=== PATIENT | female | born 1935 | race Caucasian/White ===

== ENCOUNTER 2021-02-24 12:22 | Inpatient (IN) | payer MEDICARE, OTHER ==
[2021-02-24] VITALS (9 sets, daily range): BP systolic 76–99; BP diastolic 40–54; PULSE 99–108; TEMP 97.8–100
[~2021-02-24] VITALS: Wt 81.1 kg
[~2021-02-24 12:22] MED LIST: ALA 100MG PO; AMBIEN 10MG10 MG PO; ASPIRIN E.C. 8181 MG PO; CALCIUM CARBON650 M2 PO; IBU800 M1 PO; MAGNESIUM500 MG PO; MULTIVITAMIN FO1 CAP PO; NORCO 325 MG-51 TAB PO; NORCO 325 MG-7.1 TAB PO; PROBIOTIC ACID1 EAC3 PO; TOPROL XL 25MG25 MG PO; VITAMIND3 5000
[2021-02-24] MEDS ORDERED: SYNTHROID0.088 MG/T PO (14:41)
--- NOTE | 2021-02-24 23:38 | NUR ---
Pt.'s BP at 76/40 manually. INESSA Cruz notified. New orders received. Will monitor.
[2021-02-25] VITALS (16 sets, daily range): BP systolic 85–129; BP diastolic 43–64; PULSE 82–144; TEMP 98–101
[2021-02-25 06:34] LABS: CALCIUM 7.6 mg/dL (8.4-10.2); CREATININE, serum 0.76 mg/dL (0.57-1.11)
[2021-02-25 06:51] LABS: HEMOGLOBIN 12.4 g/dl (12.5-16.0); MEAN CELL VOLUME 96 fl (80.0-100.0); MEAN CORPUSCULAR HEMOGLOBIN 31 pg (27-31); MEAN CORPUSCULAR HGB CONC 32 g/dl (33.0-37.0); MEAN PLATELET VOLUME 10.1 fl (7.4-10.4); PLATELET COUNT 130 K/mm3 (130-400); RED BLOOD COUNT 4.07 M/mm3 (4.10-5.30); REDCELL DISTRIBUTION WIDTH-CV 13.3 % (11.5-14.5)
--- NOTE | 2021-02-25 06:54 | NUR ---
Critical lab value called to Dr. Nicole.
[2021-02-25 07:50] LABS: BAND 23 % (0-10); LYMPHOCYTE 7 % (20.0-51.0); NEUTROPHILS 64 % (42.0-75.2)
[2021-02-25 07:51] LABS: HYPOCHROMIA 2+; PLATELET ESTIMATE NORMAL (NORMAL)
--- NOTE | 2021-02-25 09:25 | NUR ---
BRADEN met with the patient to discuss discharge plan. The patient lives alone in an apartment in [place]. She states that her daughter, Maria Guadalupe, lives next door to her. She reports independence with ADLs and has a cane. The patient's primary care provider is Yissel Ortez APRN and she receives her medications from [facility]. The patient does not have a DPOA-HC, but she states that she does have one completed and that she designated her daughter, Ashleigh Gamez ([place], ph#[phone]). The patient states that Ashleigh should have a copy of the document. She states that she is and has three children: Ashleigh, Maria Guadalupe, and Eloise ([place]). The patient would like to return home upon discharge. PT/OT have been ordered. Awaiting recs. BRADEN contacted and reviewed the above with the patient's daughter, Ashleigh. Ashleigh reports that she is looking for the DPOA-HC and will try and email or get a copy of the DPOA-HC to BRADEN. Ashleigh reports that she is supportive of the patient returning home, as long as she is able to get up and get around. Ashleigh reports that her sister that lives next door to the patient is disabled and would not be able to physically assist the patient much. She is open to whatever therapy would recommend. She reports that between her and the family, they are able to assist the patient. *Discharge plan: Tentatively home. Will await therapy's recs*
--- NOTE | 2021-02-25 15:11 | NUR ---
The patient is walking 300 ft with PT. PT and OT are recommending home.
--- NOTE | 2021-02-25 21:13 | NUR ---
CARDIZEM BOLUS 10MG IV GIVEN.
--- NOTE | 2021-02-26 02:40 | NUR ---
CALL RECIEVED FROM TELE PATIENT WAS AFIB W RVR. NOTIFIED LILIANA, STAT EKG ORDERED. CONFIRMED AFIB W RVR/AFLUTTER. CARDIAZEM BOLUS ORDERED AND GIVEN BY ROSIBEL BEDOLLA. NO SIGNIFICANT CHANGE. CARDIAZEM DRIP ORDERED AND STARTED BY ROSIBEL BEDOLLA. PATIENT QUICKLY RETURNED TO SINUS TACH. LILIANA NOTIFIED. CARDIAZEM DRIP HELD, NEW EKG SHOWED SINUS TACH. CARDIAZEM DRIP DC'D PER ORDERS AND PO METOPROLOL GIVEN.
[2021-02-26 04:41] VITALS: BP 126/57; PULSE 88; TEMP 97.9
[2021-02-26 07:38] LABS: HEMOGLOBIN 10.8 g/dl (12.5-16.0); MEAN CELL VOLUME 92 fl (80.0-100.0); MEAN CORPUSCULAR HEMOGLOBIN 30 pg (27-31); MEAN CORPUSCULAR HGB CONC 33 g/dl (33.0-37.0); MEAN PLATELET VOLUME 9.9 fl (7.4-10.4); PLATELET COUNT 127 K/mm3 (130-400); RED BLOOD COUNT 3.55 M/mm3 (4.10-5.30); REDCELL DISTRIBUTION WIDTH-CV 13.2 % (11.5-14.5)
[2021-02-26 07:44] LABS: HEMATOCRIT 32.8 % (37.0-47.0)
[2021-02-26 07:49] LABS: CALCIUM 7.8 mg/dL (8.4-10.2); CREATININE, serum 0.55 mg/dL (0.57-1.11); POTASSIUM 3.4 mmol/L (3.5-4.5)
[2021-02-26 08:10] VITALS: BP 134/66; PULSE 84; TEMP 97.9
[2021-02-26 09:00] LABS: BAND 22 % (0-10); EOSINOPHIL 1 % (0-4); HYPOCHROMIA 1+; LYMPHOCYTE 4 % (20.0-51.0); NEUTROPHILS 71 % (42.0-75.2); PLATELET ESTIMATE DECREASED (NORMAL)
[2021-02-26 12:53] VITALS: BP 122/67; PULSE 87; TEMP 98
[2021-02-26 16:36] VITALS: BP 130/57; PULSE 85; TEMP 98.2; TEMP 982
--- NOTE | 2021-02-26 16:54 | NUR ---
Pt doing well. She has responded nicely to the lasix. Called Sims regarding UA that was sent off for culture. Results are still pending. Pt has had no episodes of diarrhea today. No needs verbalized, call light within reach
[2021-02-26 19:47] VITALS: BP 128/61; PULSE 79; TEMP 97.8
--- NOTE | 2021-02-26 21:00 | NUR ---
Pt. sitting up in bed at this time. Pt. is A&OX3, assessment complete. INT to lt. wrist patent. Pt. denies pain or other needs, call light within reach.
[2021-02-26 22:51] VITALS: BP 117/62; PULSE 61; TEMP 98.3
[2021-02-27 03:25] VITALS: BP 120/64; PULSE 74; TEMP 98
[2021-02-27 07:00] LABS: HEMOGLOBIN 11.6 g/dl (12.5-16.0); MEAN CELL VOLUME 89 fl (80.0-100.0); MEAN CORPUSCULAR HEMOGLOBIN 30 pg (27-31); MEAN CORPUSCULAR HGB CONC 34 g/dl (33.0-37.0); MEAN PLATELET VOLUME 10.3 fl (7.4-10.4); PLATELET COUNT 160 K/mm3 (130-400); RED BLOOD COUNT 3.88 M/mm3 (4.10-5.30); REDCELL DISTRIBUTION WIDTH-CV 12.9 % (11.5-14.5)
[2021-02-27 07:24] LABS: HEMATOCRIT 34.5 % (37.0-47.0)
[2021-02-27 07:27] LABS: CALCIUM 8.2 mg/dL (8.4-10.2); CREATININE, serum 0.59 mg/dL (0.57-1.11); POTASSIUM 3.4 mmol/L (3.5-4.5)
[2021-02-27 08:26] VITALS: BP 106/50; PULSE 78; TEMP 98.4
[2021-02-27 09:13] LABS: BAND 7 % (0-10); LYMPHOCYTE 11 % (20.0-51.0); NEUTROPHILS 75 % (42.0-75.2); PLATELET ESTIMATE NORMAL (NORMAL)
--- NOTE | 2021-02-27 10:10 | NUR ---
Patient is A&Ox4 and doing well. Patient did have an episode of incontinent diarrhea and a shower was given given by the PCT.
--- NOTE | 2021-02-27 11:13 | NUR ---
Discussed pt care with Dr Disla. She is ok with pt discharging. She stated that she did talk to Dr Nicole about this. Pt is have diarrhea, will discuss with Dr Nicole about getting some imodium if not already ordered. Pt has no pain complaints. Heart rate regular sinus rhythm, bowel sounds active and lung sounds clear. Pt is having great output from the lasix. Still has some edema to lower extremities, but not as bad as yesterday.
[2021-02-27 12:11] VITALS: BP 107/57; PULSE 78; TEMP 98.4
[2021-02-27 16:54] VITALS: BP 120/59; PULSE 80; TEMP 98.5
--- NOTE | 2021-02-27 17:00 | NUR ---
Pt has overall done well this afternoon. She has had no more episodes of diarrhea. She is having no pain complaints. Discussed pt care with Dr Disla earlier this afternoon. pt denies any needs, call light within reach
[2021-02-27 18:55] VITALS: BP 114/45; PULSE 80; TEMP 97.9
--- NOTE | 2021-02-27 22:00 | NUR ---
Pt. sitting up in bed. Pt. is A&OX3, assessment complete. INT to lt. wrist patent. Pt. denies pain or other needs, call light within reach.
[2021-02-27] MEDS ORDERED: ELIQUIS 5MG PO (23:01)
[2021-02-27] MEDS ORDERED: CORDARONE200 MG/TAB PO ×3 (23:09→23:12)
[2021-02-27] MEDS ORDERED: BACTRIM DS 8001 TAB PO (23:13)
[2021-02-27] MEDS ORDERED: LASIX 40MG TABL40 MG PO (23:17)
[2021-02-28 02:52] VITALS: BP 118/60; PULSE 69; TEMP 97.8
[2021-02-28 07:58] VITALS: BP 122/55; PULSE 74; TEMP 98
--- NOTE | 2021-02-28 08:53 | NUR ---
Patient up to the bathroom, loose BM. pericares provided. Patient up tp chair for breakfast. denies nausea. denies pain. Int. Very plesant. Will monitor.
[2021-02-28 10:24] LABS: CLOSTRIDIUM DIFF A/B NEG; CLOSTRIDIUM DIFF A/B INTERP No C.diff present
--- NOTE | 2021-02-28 10:35 | NUR ---
Patient up to the bathroom, small loose stool. Incontinent cares provided. Patient up sink and brushed her teeth. Will monitor.
[2021-02-28 12:13] VITALS: BP 115/54; PULSE 73; TEMP 98.6
--- NOTE | 2021-02-28 12:36 | NUR ---
Patient resting in bed. Lunch ordered. Cardiology rounded. K+ replacment per orders. Patient took medication with crakers. She denies pain, just reports her stomach is going "crazy". Denies needs. Will monitor
--- NOTE | 2021-02-28 15:09 | NUR ---
Patient tolerated lunch. She is in good spirits.
[2021-02-28 15:37] VITALS: BP 97/43; PULSE 88; TEMP 98.4
--- NOTE | 2021-02-28 15:51 | NUR ---
Patient was up and ambulated the halls with therapy. Sitting up in chair watching [employer] game now.
--- NOTE | 2021-02-28 17:08 | NUR ---
Patient resting in bed. no interest in dinner. No other needs at this time
[2021-02-28 19:12] VITALS: BP 106/52; PULSE 72; TEMP 98
--- NOTE | 2021-02-28 19:18 | NUR ---
Bedside report to Senthil Castellanos
--- NOTE | 2021-02-28 20:40 | NUR ---
Pt. sitting up in bed. Pt. is A&OX3, assessment complete. INT to lt. wrist patent. Pt. denies pain or other needs, call light within reach.
[2021-03-01 03:32] VITALS: BP 120/53; PULSE 79; TEMP 98
[2021-03-01 08:00] VITALS: BP 102/62; PULSE 81; TEMP 98.1
[2021-03-01 08:27] LABS: HEMOGLOBIN 12.3 g/dl (12.5-16.0); MEAN CELL VOLUME 87 fl (80.0-100.0); MEAN CORPUSCULAR HEMOGLOBIN 30 pg (27-31); MEAN CORPUSCULAR HGB CONC 34 g/dl (33.0-37.0); MEAN PLATELET VOLUME 9.6 fl (7.4-10.4); PLATELET COUNT 204 K/mm3 (130-400); REDCELL DISTRIBUTION WIDTH-CV 12.8 % (11.5-14.5)
[2021-03-01 08:34] LABS: HEMATOCRIT 35.8 % (37.0-47.0)
[2021-03-01 08:43] LABS: CALCIUM 8.5 mg/dL (8.4-10.2); CREATININE, serum 0.6 mg/dL (0.57-1.11); POTASSIUM 3.8 mmol/L (3.5-4.5)
[2021-03-01 08:59] LABS: BAND 2 % (0-10); BASOPHIL 1 % (0-2); EOSINOPHIL 3 % (0-4); LYMPHOCYTE 22 % (20.0-51.0); NEUTROPHILS 61 % (42.0-75.2); PLATELET ESTIMATE NORMAL (NORMAL)
--- NOTE | 2021-03-01 10:57 | NUR ---
Patient is alert, oriented x4. Makes needs known. Ramirez catheter removed for anticiapted discharge. Discharge orders noted for after patient is able to void. Medications held for SBP this am, see MAR. Eats breakfast meal. Catheter care/pericare given this am prior to ramirez removal. INT to Left wrist flushes, no s/s of redness, swelling, or warmth. Pt anxious to discharge later today. Denies pain or nausea. Call light within reach.
[2021-03-01 11:35] VITALS: BP 117/63; PULSE 80; TEMP 97.8
--- NOTE | 2021-03-01 11:49 | NUR ---
Patient denies complaints. Aware that once she has a urine void, she may discharge. Drinking water and reading book. Call light within reach.
--- NOTE | 2021-03-01 13:41 | NUR ---
Patient had large urine void. Daughter and granddaughter here, discharge instructions given to all three. Questions answered. Patient reports feeling fine at time of discharge, denied pain or nausea. Discharge paperwork given, INT removed. Pt discharges via wc and SUEDING MACHINE OPERATOR at 1339.
== END 2021-03-01 13:39 | disposition home or self-care (01) | DRG 854 ==
LOC: SURG 12:22 → EDSTATUS 13:06 → SURG 13:19
PROVIDERS: Physician Assistant; Urology; ADMIT Internal Medicine
PROC: 0T778DZ Dilation of Left Ureter with Intraluminal Device, Via Natural or Artificial Opening Endoscopic (ICD-10-PCS; principal; 2021-02-24 18:10)
PROC: BT1B1ZZ Fluoroscopy of Bladder and Urethra using Low Osmolar Contrast (ICD-10-PCS; 2021-02-24 18:10)
DX: A41.9 Sepsis, unspecified organism (principal); N13.6 Pyonephrosis; I10 Essential (primary) hypertension; E03.9 Hypothyroidism, unspecified; G47.00 Insomnia, unspecified; K52.9 Noninfective gastroenteritis and colitis, unspecified; K44.9 Diaphragmatic hernia without obstruction or gangrene; N83.202 Unspecified ovarian cyst, left side; N83.201 Unspecified ovarian cyst, right side; K57.90 Diverticulosis of intestine, part unspecified, without perforation or abscess without bleeding; I48.91 Unspecified atrial fibrillation; B96.1 Klebsiella pneumoniae [K. pneumoniae] as the cause of diseases classified elsewhere; Z79.82 Long term (current) use of aspirin
CPT/HCPCS: OP; 99223-AI; 99232-AI; 99233-AI; 99239; C1769; C2617; J0690; J1650; J1940; J2185; J2270; J2405; J2704; J3010; J7030; Q9967

== ENCOUNTER 2021-05-07 10:58 | Day surgery (SDC) | payer MEDICARE, OTHER ==
[~2021-05-07] VITALS: Ht 170.2 cm; Wt 80.2 kg
[2021-05-07] VITALS (10 sets, daily range): BP systolic 106–1106; BP diastolic 44–82; PULSE 77–102; TEMP 97.6–98.4
[~2021-05-07 10:58] MED LIST changes: +BACTRIM DS 8001 TAB PO; -CALCIUM CARBON650 M2 PO; +CORDARONE200 MG/TAB PO; +ELIQUIS 5MG PO; +LASIX 40MG TABL40 MG PO; +OSCAL 500 TAB500 MG PO; +SYNTHROID0.088 MG/T PO
[2021-05-07] MEDS ORDERED: NAC600 MG PO (12:29)
[2021-05-07] MEDS ORDERED: CVS SPECTRAVIT1 EA15 PO (12:30)
[2021-05-07] MEDS ORDERED: ASPIRIN E.C. 8181 MG PO (12:31)
--- NOTE | 2021-05-07 15:59 | NUR ---
Patient admitted to surgical floor room 326 from PACU via hospital bed at 14:35 pm. Patient A/Ox4. Patient denies any pain or discomfort. Denies SOB or N/V. VS stable. Called patient's daughter Ashleigh and updated on patient condition. Oriented patient to the room. Patient using a walker in the room. Assisted patient to the bathroom with standby assist. Patient denies headache or dizziness upon get up. Fall preacaution maintained. Offered warm water per patient request. Call light in reach. Will continue to monitor.
--- NOTE | 2021-05-07 16:45 | NUR ---
Patient doing well. Patient sitting up in bed and eating dinner. Patient tolerating PO intake. Patient denies pain, or N/V. Ambulating to the bathroom with a walker. Stand by assist provided. Patient's daughter in the room. Call light in reach. Will continue to monitor.
--- NOTE | 2021-05-07 22:00 | NUR ---
Pt. is sitting up in bed. Pt. is A&OX3, assessment complete. INT to rt. forearm patent. Pt. denies pain or other needs. Call light within reach.
[2021-05-08 04:01] VITALS: BP 97/42; PULSE 86; TEMP 98.1
[2021-05-08 08:00] VITALS: BP 102/56; PULSE 77; TEMP 97.4
--- NOTE | 2021-05-08 11:17 | NUR ---
Initial visit; Patient and family thanked Me[employer] Whe[employer] Driver for looking in on patient and offering encouragement and prayer.
[2021-05-08] MEDS ORDERED: DIFLUCAN50 MG PO (11:22)
--- NOTE | 2021-05-08 12:40 | NUR ---
PATIENT'S IV WAS REMOVED, CATHETER INTACT, PRIOR TO DISCHARGE. PATIENT'S DISCHARGE PACKET WAS REVIEWED WITH PATIENT AND PATIENT VERBALIZED UNDERSTANDING OF DISCHARGE INSTRUCTIONS. NURSE REVIEWED DISCHARGE INFORMATION ABOUT POST PROCEDURE FOLLOW UP AND PATIENT DID NOT HAVE ANY QUESTIONS OR CONCERNS AT THIS TIME.
== END 2021-05-08 12:45 | disposition home or self-care (01) ==
LOC: SDCO 10:58 → SURG 15:51 → SDCO 05-08 12:45
DX: N20.1 Calculus of ureter (principal); N30.20 Other chronic cystitis without hematuria; R82.81 Pyuria; Z87.891 Personal history of nicotine dependence
CPT/HCPCS: OP; C1769; J2704; Q9967

== ENCOUNTER 2023-12-28 00:17 | Inpatient (IN) | payer MEDICARE ==
[~2023-12-28] VITALS: Ht 172.7 cm; Wt 89.9 kg
[2023-12-28] VITALS (18 sets, daily range): BP systolic 93–169; BP diastolic 54–84; PULSE 77–101; TEMP 97.3–102.6
[~2023-12-28 00:17] MED LIST changes: +CRANBERRY 4001 EACH PO; +CVS SPECTRAVIT1 EA15 PO; +DIFLUCAN50 MG PO; +DULCOLAX S10 MG/SUPP RC; +DULCOLAX STOOL100 MG PO; +LASIX 20MG TABL20 MG PO; +LOPRESSOR 225 MG/TAB PO; +MILK OF MA400 MG/52 PO; +MYLANTA 150 ML150 M1 PO; +NAC600 MG PO; +NATURAL MAGNES200 MG PO; +TYLENOL 8 HR PO; +VITAMINC1000TA; +VITAMINC1000TA PO; -VITAMIND3 5000; +VITAMIND3 5000 PO; +ZOFRAN INJ4 MG/2 ML IV; +[UNRECOGNIZED DRUG - OTHER] PO
[2023-12-28] MEDS ORDERED: CORDARONE200 MG/TAB PO (01:43)
--- NOTE | 2023-12-28 01:59 | NUR ---
Pt arrived to surgical floor by EMS from [facility]. Report received from GRAEME Alonso from [facility]. Pt is A&O x4. VSS. INT to Rt forearm patent with no swelling, redness, or drainage. Admission assessment and intake completed. Home medications, allergies, and pharmacy reviewed with pt. Oriented pt to room, call light, and bathroom. Fall precautions implemeneted. Pt denies pain rating 0/10. Hospitalist Sanford notified of pt arrival. Pt has no request at this time. Call light within reach and fall precautions in place.
[2023-12-28] MEDS ORDERED: Acetaminophen 500 MG TAB PO PRN (02:15)
[2023-12-28] MEDS ORDERED: Ondansetron 4 MG/2 ML VIAL IV PRN (02:15)
[2023-12-28] MEDS ORDERED: Morphine 4 MG/ML VIAL IV PRN (02:30)
[2023-12-28] MEDS ORDERED: NS 1,000 ML IV SCH (02:30)
[2023-12-28] MEDS ORDERED: Albuterol/Ipratropium 3 MG-0.5 MG/3 ML Neb Soln IH PRN (05:30)
[2023-12-28 06:26] LABS: BASO % 0.2 % (0.0-2.0); GRAN # 10.6 K/mm3 (1.4-6.5); GRAN % 88.7 % (42.2-75.2); HEMATOCRIT 39.1 % (37.0-47.0); HEMOGLOBIN 12.8 g/dl (12.5-16.0); LYMPH # 0.6 K/mm3 (1.2-3.4); LYMPH % 5.2 % (20.0-51.0); MEAN CELL VOLUME 96 fl (80.0-100.0); MEAN CORPUSCULAR HEMOGLOBIN 31 pg (27-31); MEAN CORPUSCULAR HGB CONC 33 g/dl (33.0-37.0); MEAN PLATELET VOLUME 9.3 fl (7.4-10.4); MONO # 0.7 K/mm3 (0.1-0.6); MONO % 5.6 % (1.7-9.3); PLATELET COUNT 229 K/mm3 (130-400); RED BLOOD COUNT 4.08 M/mm3 (4.10-5.30); REDCELL DISTRIBUTION WIDTH-CV 14.1 % (11.5-14.5)
[2023-12-28 06:35] LABS: CALCIUM 8.3 mg/dL (8.4-10.2); CREATININE, serum 0.79 mg/dL (0.57-1.11)
--- NOTE | 2023-12-28 08:10 | NUR ---
PATIENT ALERT AND ORIENTED X4. PATIENT ON 1L /. PATIENT DENIES PAIN AT THIS TIME, DENIES CHEST PAIN, DIZZINESS. PATIENT HAS A MILD ELEVATED FEVER,PRN MEDICATION GIVEN. PATIENT ASSISTED TO THE BATHROOM AND VOIDED TEA COLOR URINE. PATIENT ASSITED BACK TO BED.CALL LIGHT WITHIN REACH. BED AT LOWEST POSITION. BED ALARM ON.
[2023-12-28] MEDS ORDERED: Lidocaine PF 2% (20 MG/ML) 5 ML VIAL ONE (11:47)
[2023-12-28] MEDS ORDERED: fentaNYL 50 MCG/ML 2 ML VIAL ONE (11:59)
[2023-12-28] MEDS ORDERED: Lidocaine 2% (20 MG/ML) 20 ML UROJET UR ONE (12:27)
--- NOTE | 2023-12-28 12:42 | NUR ---
workers' compensation magistrate and BRADEN Dyer met with patient to discuss discharge planning. Patient stated she lives alone in [place]. Patient's daughter, Ashleigh, P# [phone]. PCP is Dr. Ortez but she is switching to another doctor at this same facility, [facility]. No issues affording medications. Insurance is Medicare A and B and [employer] Senior Supplemental. DPOA-HC is Ashleigh. DME is rollator walker, railings, toilet riser, shower chair. Patient is not normally on oxygen but is currently on oxygen. Patient uses the public transportation in [place]. BRADEN explained patient will be working with PT and OT today and they would help determine if she would require any rehab after hospitalization. Patient stated if she had to go somewhere for rehab she would like the [place] swing bed as she does not want to leave her home town. BRADEN explained she would follow up later. BRADEN spoke with PT whom expressed patient would be able to return home with home health services. Discharge plan: Home with Home health
--- NOTE | 2023-12-28 12:51 | NUR ---
D: Race Car Mechanic stopped by room on rounds. A: Pt was resting and content. Pt has no needs right now. P: Race Car Mechanic informed pt that if she needed anything from the metal shaping machine operator area to let her nurse know. Race Car Mechanic will follow up as needed.
--- NOTE | 2023-12-28 15:18 | NUR ---
Strategic Procurement Manager faxed referral to [facility]
--- NOTE | 2023-12-28 15:29 | NUR ---
log pond worker attended multidisciplinary team meeting. Patient is recommended home with home health services. Everyone is in agreement with this plan. BRADEN met with patient and presented the Medicare.gov for home health options. Patient stated she has had home health through [facility] in the past and would like to continue services there. BRADEN Dee faxed referral to [facility] . BRADEN contacted Ashleigh, daughter, and updated her that the plan is to return home with home health once medically ready. Ashleigh understood and was in agreement. BRADEN explained she would keep her updated when patient is medically ready to discharge. No concerns at this time. Discharge plan: Home with [facility]
[2023-12-28] MEDS ORDERED: Azithromycin 500 MG in NS 250 ML IV SCH (19:00)
--- NOTE | 2023-12-28 20:00 | NUR ---
PATIENT IS A&O. VSS. HR IRREGULAR IN THE 80-90'S. HX OF A-FIB. TOLERATING GEN DIET. HS MEDS GIVEN. IV FLUIDS INFUSING VIA PUMP INTO RIGHT WRIST. BARRAZA TO DD WITH MOD AMOUNTS OF MILKY URINE WITH CHUNCKS. MCALPIN NOTIFIED BY DAY SHIFT, REQUEST FOR BC RESULTS. HEAD TO TOE ASSESSMENT COMPLETE. NOTED WHEEZES. SCD'S TO BLE. NO OTHER NEEDS AT THIS TIME. CALL LIGHT IN REACH.
[2023-12-28] MEDS ORDERED: Amiodarone 200 MG TAB PO SCH (21:00)
[2023-12-28] MEDS ORDERED: cefTRIAXone 2 G in Water For Injection,Sterile 20 ML IV SCH (21:00)
[2023-12-28] MEDS ORDERED: Metoprolol Tartrate 25 MG TAB PO SCH (21:00)
[2023-12-29] VITALS (12 sets, daily range): BP systolic 97–128; BP diastolic 62–77; PULSE 82–90; TEMP 98.5–98.7
[2023-12-29 07:24] LABS: CALCIUM 7.7 mg/dL (8.4-10.2); CREATININE, serum 0.72 mg/dL (0.57-1.11); POTASSIUM 3.8 mEq/L (3.5-4.5)
[2023-12-29 09:07] LABS: BASO % 0.3 % (0.0-2.0); EOS # 0.1 K/mm3 (0.0-0.7); EOS % 0.9 % (0.0-4.0); GRAN # 5.3 K/mm3 (1.4-6.5); GRAN % 75.4 % (42.2-75.2); HEMOGLOBIN 11.1 g/dl (12.5-16.0); LYMPH # 0.8 K/mm3 (1.2-3.4); LYMPH % 11.6 % (20.0-51.0); MEAN CELL VOLUME 97 fl (80.0-100.0); MEAN CORPUSCULAR HEMOGLOBIN 31 pg (27-31); MEAN CORPUSCULAR HGB CONC 32 g/dl (33.0-37.0); MEAN PLATELET VOLUME 9.6 fl (7.4-10.4); MONO # 0.8 K/mm3 (0.1-0.6); MONO % 11.5 % (1.7-9.3); PLATELET COUNT 237 K/mm3 (130-400); REDCELL DISTRIBUTION WIDTH-CV 14.1 % (11.5-14.5)
[2023-12-29 09:08] LABS: HEMATOCRIT 34.9 % (37.0-47.0)
--- NOTE | 2023-12-29 10:00 | NUR ---
CALLED DAUGHTER PER PT REQUEST AND GAVE UDATE,
--- NOTE | 2023-12-29 10:02 | NUR ---
BARRAZA CATHETER DISCONTINUED PER ORDERS. PT TOLERATED WELL. PT IS A/O X4. URINE IS VERY CLOUDY, HOSPITALIST AWARE.
--- NOTE | 2023-12-29 14:37 | NUR ---
Social work student sent updates to [facility]. SW student called [facility] to confirm placement once Pt dishcarges. [facility] was agreeable for placement. Discharge Plan: home with home health
[2023-12-30] VITALS: BP_SYST 113
[2023-12-30 04:00] VITALS: BP 135/69; PULSE 102; TEMP 98.6
[2023-12-30 07:43] VITALS: BP 143/82; PULSE 85; TEMP 97.8
[2023-12-30 07:47] VITALS: BP_SYST 143
--- NOTE | 2023-12-30 07:56 | NUR ---
Patient up to the bathroom this am, stand by assist. Reports Large BM. Up to sink to brush teeth. Right IV leaking, dc. Patient not wanting to start new IV at this time, she wants to wait to see doctor for plan of care. Breakfast ordered, denies nausea.
--- NOTE | 2023-12-30 09:34 | NUR ---
SPOKE TO [facility] FAXED PER REQUEST BY HOSPITALIST. MADE AWARE
[2023-12-30] MEDS ORDERED: OMNICEF 300MG300 MG PO (10:17)
[2023-12-30] MEDS ORDERED: Azithromycin 250 MG TAB PO ONE (10:30)
[2023-12-30] MEDS ORDERED: Cefdinir 300 MG CAP PO ONE (10:30)
[2023-12-30] MEDS ORDERED: PROBIOTIC ACID1 EAC3 PO (10:36)
[2023-12-30 11:43] VITALS: BP 135/84; PULSE 80; TEMP 98.2
[2023-12-30 12:00] VITALS: BP_SYST 135
--- NOTE | 2023-12-30 12:15 | NUR ---
Patient ready for discharge. Her daughter here to take her home. We reviewed discharge education. New scripts reviewed and sent to pharmacy. Her other daughter to pick her prescriptions. Last dose of medications reviewed. PO antibioitcs given prior to discharge as ordered. Patient aware of urology office to call for follow up and patient given number to call for questions and or cocnerns. Patient glad to be going home. Patient wheeled out with all belongings.
--- NOTE | 2023-12-30 16:39 | NUR ---
Transport Conductor sent clinical updates and discharge packet to [facility].
== END 2023-12-30 12:30 | disposition home health service (06) | DRG 659 ==
LOC: SURG 00:17
PROVIDERS: Physician Assistant; Urology; ADMIT Internal Medicine
PROC: 0T778DZ Dilation of Left Ureter with Intraluminal Device, Via Natural or Artificial Opening Endoscopic (ICD-10-PCS; principal; 2023-12-28 12:00)
DX: N13.6 Pyonephrosis (principal); J69.0 Pneumonitis due to inhalation of food and vomit; J96.01 Acute respiratory failure with hypoxia; E03.9 Hypothyroidism, unspecified; I48.91 Unspecified atrial fibrillation
CPT/HCPCS: A4314; A9284; C1769; C2617; J0456; J0690; J0696; J2270; J2704; J3010; J7030; J7050